=== PATIENT | female | born 1970 | race Asian ===

== ENCOUNTER 2023-06-15 08:07 | Emergency (ER) | payer OTHER ==
[2023-06-15 08:11] VITALS: BP 163/88; PULSE 69; RESP 17; TEMP 98.4; BMI 25.7
[2023-06-15 09:34] LABS: BASO % 0.7 % (0-2.0); EOS % 1.7 % (0-4.5); HEMATOCRIT 40.2 % (32.4-45.2); HEMOGLOBIN 13.6 GM/dL (10.7-15.3); MCH 29.1 pg (25.7-33.7); MCHC 33.7 g/dl (32.0-36.0); MEAN CELL VOLUME 86.4 fl (80-96); MEAN PLT VOLUME 7.6 fl (7.5-11.1); MONO % 7.3 % (3.8-10.2); NEUT % 56.3 % (42.8-82.8); PLATELET COUNT 305 10^3/uL (134-434); RBC 4.66 M/mm3 (3.60-5.2); RDW 12.8 % (11.6-15.6); WHITE BLOOD COUNT 7.1 K/mm3 (4.0-10.0)
[2023-06-15 09:51] LABS: POTASSIUM 4.5 mmol/L (3.5-5.1)
[2023-06-15] MEDS ORDERED: HIV POST EXPOSURE PROPHYLAXIS KIT PO ONE ×2 (09:51→10:04)
[2023-06-15 09:54] LABS: ALBUMIN 4.2 g/dl (3.4-5.0); CALCIUM 9.2 mg/dL (8.5-10.1)
[2023-06-15 09:55] LABS: BLOOD UREA NITROGEN 14.3 mg/dL (7-18)
[2023-06-15 09:56] LABS: URIC ACID 4.4 mg/dL (2.6-7.2)
[2023-06-15 09:57] LABS: CREATININE 0.8 mg/dL (0.55-1.3)
[2023-06-15 09:58] LABS: PHOSPHOROUS 4.3 mg/dL (2.5-4.9); TOT PROT 8.2 g/dl (6.4-8.2)
[2023-06-15 09:59] LABS: BILIRUBIN,TOTAL 0.4 mg/dL (0.2-1)
[2023-06-15 12:21] LABS: HIV INTERPRETATION NEGATIVE (NEGATIVE)
== END 2023-06-15 10:31 | disposition home or self-care (01) ==
LOC: JERFT 08:07
DX: S61.442A Puncture wound with foreign body of left hand, initial encounter (principal); W46.0XXA Contact with hypodermic needle, initial encounter
CPT/HCPCS: 36415; 80053; 82465; 82977; 83615; 84100; 84478; 84550; 84703; 85025; 86704; 86803; 87340; 87389; 87517; 99283-25

== ENCOUNTER 2024-02-10 07:42 | Emergency (ER) | payer BC, OTHER ==
[2024-02-10 07:50] VITALS: BMI 25.3
[2024-02-10] MEDS ORDERED: KETOROLAC TROMETHAMINE 15 MG/ML VIAL ONE (08:38)
[2024-02-10] MEDS: KETOROLAC TROMETHAMINE 15 MG/ML VIAL IVPUSH ONE (08:40)
[2024-02-10 08:55] LABS: BASO % 0.7 % (0-2.0); EOS % 1.2 % (0-4.5); HEMATOCRIT 39.2 % (32.4-45.2); HEMOGLOBIN 13.7 GM/dL (10.7-15.3); LYMPH % 48.7 % (8-40); MCH 29.9 pg (25.7-33.7); MCHC 35.1 g/dl (32.0-36.0); MEAN CELL VOLUME 85.3 fl (80-96); MEAN PLT VOLUME 7.1 fl (7.5-11.1); NEUT % 40.4 % (42.8-82.8); PLATELET COUNT 303 10^3/uL (134-434); WHITE BLOOD COUNT 7.1 K/mm3 (4.0-10.0)
[2024-02-10 09:22] LABS: POTASSIUM 4.2 mmol/L (3.5-5.1)
[2024-02-10 09:23] LABS: CALCIUM 9.6 mg/dL (8.5-10.1)
[2024-02-10 09:24] LABS: ALBUMIN 4.3 g/dl (3.4-5.0); BLOOD UREA NITROGEN 12.1 mg/dL (7-18)
[2024-02-10 09:27] LABS: CREATININE 0.8 mg/dL (0.55-1.3)
[2024-02-10 09:29] LABS: BILIRUBIN,TOTAL 0.7 mg/dL (0.2-1); TOT PROT 8.1 g/dl (6.4-8.2)
[2024-02-10 10:58] VITALS: BP 141/96; PULSE 62; RESP 16; TEMP 97.8
== END 2024-02-10 10:58 | disposition home or self-care (01) ==
LOC: JER 07:42
PROC: 3E0333Z Introduction of Anti-inflammatory into Peripheral Vein, Percutaneous Approach (ICD-10-PCS; principal; 2024-02-10)
DX: R09.1 Pleurisy (principal); I10 Essential (primary) hypertension
CPT/HCPCS: 36415; 71046-TC-FY; 80053; 84484; 85025; 85379; 93005; 93010; 99285-25

== ENCOUNTER 2024-03-01 21:50 | Emergency (ER) | payer OTHER, BC ==
[2024-03-01 22:04] VITALS: BP 159/61; PULSE 64; RESP 20; TEMP 99; BMI 25.1
[2024-03-01] MEDS ORDERED: IBUPROFEN 600 MG TABLET (FP) PO ONE (22:47)
[2024-03-01] MEDS: IBUPROFEN 600 MG TABLET (FP) PO ONE (22:56)
== END 2024-03-01 23:02 | disposition home or self-care (01) ==
LOC: JERFT 21:50
PROC: 2W3JX1Z Immobilization of Right Finger using Splint (ICD-10-PCS; principal; 2024-03-01)
DX: S60.031A Contusion of right middle finger without damage to nail, initial encounter (principal); W23.0XXA Caught, crushed, jammed, or pinched between moving objects, initial encounter; Y99.0 Civilian activity done for income or pay
CPT/HCPCS: 73140-TC-RT-FY; 99283-25